=== PATIENT | male | born 1970 | race Caucasian/White ===

== ENCOUNTER 2019-03-01 21:16 | Emergency (ER) | payer OTHER ==
[~2019-03-01] VITALS: Ht 170.2 cm; Wt 93.0 kg
[2019-03-01 21:20] VITALS: BP 115/78
--- NOTE | 2019-03-01 22:19 | PHYS DOC ---
Past Medical History Past Medical History: No Pertinent History Past Surgical History: No Surgical History Alcohol Use: None Drug Use: None Adult General Chief Complaint Chief Complaint: LACERATION/AVULSION HPI HPI Patient is a 48 year old male who presents with right upper eyebrow laceration, patient states he accidentally fell face forward at work, no loss of consciousness but states he felt "wozzy" Review of Systems Review of Systems Constitutional: Denies fever or chills [] Eyes: Reports right eye brow laceration. Denies change in visual acuity, redness, or eye pain [] HENT: Denies nasal congestion or sore throat [] Respiratory: Denies cough or shortness of breath [] Cardiovascular: No additional information not addressed in HPI [] GI: Denies abdominal pain, nausea, vomiting, bloody stools or diarrhea [] : Denies dysuria or hematuria [] Musculoskeletal: Denies back pain or joint pain [] Integument: see eye Neurologic: Denies headache, focal weakness or sensory changes [] All other systems were reviewed and found to be within normal limits, except as documented in this note. Current Medications Current Medications Current Medications Medications (Trade) Dose Ordered Sig/Scott Start Time Stop Time Status Last Admin Dose Admin Diphtheria/ Tetanus/Acell Pertussis (Boostrix) 0.5 ml ONCE ONCE 03/01/19 22:30 03/01/19 22:31 DC 03/01/19 22:39 0.5 ML Lidocaine/Sodium Bicarbonate (Buffered Lidocaine 1%) 3 ml 1X ONCE 03/01/19 22:30 03/01/19 22:31 DC 03/01/19 22:39 3 ML Allergies Allergies Allergies Coded Allergies Type Severity Reaction Last Updated Verified No Known Drug Allergies 03/01/19 No Physical Exam Physical Exam Constitutional: Well developed, well nourished, no acute distress, non-toxic appearance. [] HENT: Normocephalic, atraumatic, bilateral external ears normal, oropharynx moist, no oral exudates, nose normal. [] Eyes: Right upper eyelid with a laceration approximately 2 cm long and not cutting through. PERRLA, EOMI, conjunctiva normal, no discharge. [] Neck: Normal range of motion, no tenderness, supple, no stridor. [] Cardiovascular:Heart rate regular rhythm, no murmur [] Lungs & Thorax: Bilateral breath sounds clear to auscultation [] Abdomen: Bowel sounds normal, soft, no tenderness, no masses, no pulsatile masses. [] Skin: Warm, dry, no erythema, no rash. [] Back: No tenderness, no CVA tenderness. [] Extremities: No tenderness, no cyanosis, no clubbing, ROM intact, no edema. [] Neurologic: Alert and oriented X 3, normal motor function, normal sensory function, no focal deficits noted. [] Psychologic: Affect normal, judgement normal, mood normal. [] Current Patient Data Vital Signs Vital Signs Date Time Temp Pulse Resp B/P (MAP) Pulse Ox O2 Delivery O2 Flow Rate FiO2 03/01/19 21:20 97.7 74 14 115/78 (90) 99 Room Air 97.7 EKG EKG [] Radiology/Procedures Radiology/Procedures []PROCEDURE: CT HEAD AND MAXILLOFACIAL WO CT scan of the head without contrast 03/01/2019 Clinical History: Fall with head and facial injury. Technique: Unenhanced, contiguous, 5 mm axial sections were obtained through the head. One or more of the following individualized dose reduction techniques were utilized for this study: 1. Automated exposure control. 2. Adjustment of the mA and/or kV according to patient size. 3. Use of iterative reconstruction technique. Findings: The ventricles and sulci are within normal limits in size and configuration. No area of abnormal attenuation is seen involving brain parenchyma. No extra-axial fluid collection is noted. No skull fracture is seen. Impression: No acute intracranial abnormality is seen. CT scan of the facial bones without contrast 03/01/2019 Clinical history: Fall with facial injury. Technique: Unenhanced, contiguous, 0.625 mm axial sections were obtained through the facial bones and orbits. 3 mm reconstructed sagittal, axial and coronal images were obtained. One or more of the following individualized dose reduction techniques were utilized for this study: 1. Automated exposure control. 2. Adjustment of the mA and/or kV according to patient size. 3. Use of iterative reconstruction technique. Findings: No facial bone fractures seen. Both orbits are intact. Mild mucosal thickening is seen scattered throughout the paranasal sinuses. No fluid level is seen. Impression: No facial bone or orbital fracture is seen. Electronically signed by: Stephan Tompkins MD (03/01/2019 10:48 PM) [facility] DICTATED and SIGNED BY: STEPHAN TOMPKINS MD DATE: 03/01/19 2248 Laceration/Wound Repair Wound Location: Right upper eyebrow Wound's Depth, Shape: Horizontal Wound Length (cm): Approximately 2 cm Wound Explored: clean Irrigated w/ Saline (ccs): 20 Betadine Prep?: Yes Anesthesia: 1% buffered lidocaine Volume Anesthetic (ccs): 160 Wound Repaired With: Dissolvable gut Suture Size/Type: 6.0/interrupted sutures Number of Sutures: 5 Progress :[] Course & Med Decision Making Course & Med Decision Making Pertinent Labs and Imaging studies reviewed. (See chart for details) This is a 48-year-old male patient presenting to the ED today with a right upper eyebrow laceration after falling face forward at work, no loss of cons ciousness. CT of the head and maxillofacial were negative. Laceration was repaired by me as noted in procedures. Wound care instructions and return precautions provided. Tetanus updated. Dragon Disclaimer Dragon Disclaimer This electronic medical record was generated, in whole or in part, using a voice recognition dictation system. Departure Departure Impression: Primary Impression: Fall from standing Additional Impressions: Facial contusion Eyebrow laceration Disposition: HOME, SELF-CARE Condition: STABLE (.) Referrals: NO PCP (PCP) Follow-up with your doctor as needed Patient Instructions: Contusion, [id number], Facial Laceration Additional Instructions: You have right eyebrow laceration that was closed with stitches. Keep the area clean and dry. You can shower wash her face. Apply Neosporin to the area twice a day. Monitor the area for any signs of infection including but not limited to increased redness, warmth to the area, yellow drainage. Your CT of the head and face were negative for any acute findings. Come back to the ED at any point symptoms worsen. Problem Qualifiers Primary Impression: Fall from standing Encounter type: initial encounter Qualified Codes: W19.XXXA - Unspecified fall, initial encounter Additional Impressions: Facial contusion Encounter type: initial encounter Qualified Codes: S00.83XA - Contusion of other part of head, initial encounter Eyebrow laceration Encounter type: initial encounter Laterality: right Qualified Codes: S01.111A - Laceration without foreign body of right eyelid and periocular area, initial encounter [employer]OR [employer] Mar 01, 2019 22:19
[2019-03-01] MEDS ORDERED: LIDOCAINE WITH 8.4% SOD BICARB 3 ML DISP.SYRIN. INJ ONE (22:30)
[2019-03-01] MEDS ORDERED: DIPHTH,PERTUSS(ACELL),TET TOX 0.5 ML DISP.SYRIN. VAX IM ONE (22:30)
--- NOTE | 2019-03-01 22:50 | RAD ---
CT scan of the head without contrast 03/01/2019 Clinical History: Fall with head and facial injury. Technique: Unenhanced, contiguous, 5 mm axial sections were obtained through the head. One or more of the following individualized dose reduction techniques were utilized for this study: 1. Automated exposure control. 2. Adjustment of the mA and/or kV according to patient size. 3. Use of iterative reconstruction technique. Findings: The ventricles and sulci are within normal limits in size and configuration. No area of abnormal attenuation is seen involving brain parenchyma. No extra-axial fluid collection is noted. No skull fracture is seen. Impression: No acute intracranial abnormality is seen. CT scan of the facial bones without contrast 03/01/2019 Clinical history: Fall with facial injury. Technique: Unenhanced, contiguous, 0.625 mm axial sections were obtained through the facial bones and orbits. 3 mm reconstructed sagittal, axial and coronal images were obtained. One or more of the following individualized dose reduction techniques were utilized for this study: 1. Automated exposure control. 2. Adjustment of the mA and/or kV according to patient size. 3. Use of iterative reconstruction technique. Findings: No facial bone fractures seen. Both orbits are intact. Mild mucosal thickening is seen scattered throughout the paranasal sinuses. No fluid level is seen. Impression: No facial bone or orbital fracture is seen. Electronically signed by: Stephan Yoon MD (03/01/2019 10:48 PM) [facility]
== END 2019-03-02 00:21 | disposition home or self-care (01) ==
LOC: ER 21:16
DX: S01.111A Laceration without foreign body of right eyelid and periocular area, initial encounter (principal); R42 Dizziness and giddiness; W18.39XA Other fall on same level, initial encounter; Y93.89 Activity, other specified; Y92.69 Other specified industrial and construction area as the place of occurrence of the external cause; Y99.0 Civilian activity done for income or pay
CPT/HCPCS: 12011; 70450; 70486; 90471; 90715; 99284-25

== ENCOUNTER 2020-02-09 09:37 | Emergency (ER) | payer BC, OTHER ==
[~2020-02-09] VITALS: Ht 175.3 cm; Wt 95.0 kg
--- NOTE | 2020-02-09 09:53 | PHYS DOC ---
Past Medical History Past Medical History: No Pertinent History Past Surgical History: No Surgical History Smoking Status: Never Smoker Alcohol Use: None Drug Use: None General Adult EDM: Chief Complaint: CHEST PAIN HPI: HPI: 49-year-old male with no reported significant past medical history, who presents for evaluation of a 3-day history of chest pain and URI symptoms. He reports diffuse chest pressure with associated dyspnea, as well as nonproductive cough, lightheadedness. No known close contact with COVID19 infected individuals. No prior history of CAD or thromboembolic disease. Review of Systems: Review of Systems: Gen: No fever, chills. Eyes: No blurred vision, diplopia. ENT: No nasal congestion, sore throat. CV: No palpitations. Reports chest pressure. Resp. Reports SOB, cough. GI: No abd pain, N/V. : No dysuria, hematuria. Neuro: No BOLIVAR, weakness. Reports lightheadedness. MSK: No myalgia, arthralgia, back pain. Skin: No acute rash or lesion. Heart Score: Risk Factors: Risk Factors: DM, Current or recent (<one month) smoker, HTN, HLP, family history of CAD, obesity. Risk Scores: Score 0 - 3: 2.5% MACE over next 6 weeks - Discharge Home Score 4 - 6: 20.3% MACE over next 6 weeks - Admit for Clinical Observation Score 7 - 10: 72.7% MACE over next 6 weeks - Early Invasive Strategies Allergies: Allergies: Allergies Coded Allergies Type Severity Reaction Last Updated Verified No Known Drug Allergies 03/01/19 No Physical Exam: PE: Gen: NAD. Well nourished. Head: NC/AT. Eyes: No scleral icterus. No conjunctival injection. ENT: MMM. Posterior OP clear. Neck: Supple. NT. No JVD. CV: RRR. Peripheral pulses intact. Resp: CTAB. Abd: Soft. NT. ND. MSK: No peripheral cyanosis. No edema. No calf tenderness or asymmetry. Neuro: Awake and alert. Skin. Warm. Dry. Psych: Appropriate mood & affect. EKG: EKG: EKG at 0944. Sinus rhythm. Heart rate 57. Normal intervals. No STEMI. Nonspecific ST changes. Interpreted by me. Radiology/Procedures: Radiology/Procedures: PROCEDURE: PORTABLE CHEST 1V EXAM: PORTABLE CHEST 1V INDICATION: Reason: Cough, CP / Spl. Instructions: / History: . TECHNIQUE: Single view COMPARISON: None FINDINGS: The heart size is normal. The great vessels appear unremarkable. There is no hilar or mediastinal mass. The lungs are clear. There is no pleural effusion or pneumothorax. There are no significant osseous abnormalities. IMPRESSION: No active cardiopulmonary disease. Electronically signed by: Theron Jurado MD (02/09/2020 10:27 AM) [id number] Course & Med Decision Making: Course & Med Decision Making Pertinent Labs and Imaging studies reviewed. (See chart for details) In summary, 49-year-old male who presents for evaluation of chest discomfort and URI symptoms over the last 3 days or so. Hemodynamically stable. No tachycardia, hypotension, or hypoxia. Unremarkable cardiorespiratory examination. Chest x-ray is clear. EKG shows no acute injury pattern. Labwork was otherwise unremarkable without leukocytosis, anemia, or gross electrolyte derangement. Troponin is negative. BNP within normal limits. Suspecting ACS, dissection, or PE at this time. HEART score 2 for age and risk factors. Sym ptoms may potentially represent novel COVID (tested by PMD yesterday, results pending), though there are no secondary findings such as thrombocytopenia, lymphopenia, transaminitis, etc. Regardless, advised typical precautions. Will be discharged home with outpatient follow-up. Rx as below. Return precautions given. Dragon Disclaimer: Maria Elena Disclaimer: This electronic medical record was generated, in whole or in part, using a voice recognition dictation system. Departure Departure Impression: Primary Impression: Viral syndrome Additional Impression: Chest pain Disposition: 01 HOME, SELF-CARE Referrals: NO PCP (PCP) Patient Instructions: Chest Pain (Nonspecific)-Brief, Form - Excuse from Work, School, or Physical Activity, Viral Syndrome Additional Instructions: Take motrin/ibuprofen 600 mg every 8 hours as needed for pain/fever. Scripts Azithromycin (ZITHROMAX) 250 Mg Tablet 250 MG PO as directed for ANTI-BIOTIC, #6 TAB 0 Refills Take 2 PO x 1 days Then take 1 PO q 24 hour for the next 4 days Prov: CRISTINA OLIVARES DO 02/09/20 Albuterol Sulfate (PROAIR HFA INHALER) 8.5 Gm Hfa.aer.ad 2 PUFF IH PRN Q4-6HRS PRN for wheezing for 21 Days, #1 INHALER 0 Refills Prov: CRISTINA OLIVARES DO 02/09/20 Acetaminophen With Codeine (TYLENOL WITH CODEINE #3 TABLET) 1 Each Tablet 1 TAB PO PRN Q12HR PRN for PAIN, #10 TAB Prov: CRISTINA OLIVARES DO 02/09/20 Justicifation of Admission Dx: Justifications for Admission: Justification of Admission Dx: N/A CRISTINA OLIVARES DO Feb 09, 2020 09:53
--- NOTE | 2020-02-09 09:54 | EKG ---
[facility] [address] [place] [address] Test Date: 2020-02-09 Test Time: 09:44:48 Pat Name: NINI JONES Department: Room: Gender: Software Quality Engineer: : [id number] Requested By: CRISTINA OLIVARES Order Number: [id number] Reading MD: Dominick Humphries Measurements Intervals [place] Rate: 57 P: 42 ID: [id number] QRS: 31 QRSD: 86 T: 46 QT: 394 QTc: 386 Interpretive Statements SINUS RHYTHM NONSPECIFIC ST-T WAVE CHANGES. Electronically Signed On 02-11-2020 16:24:06 CDT by Dominick Humphries
[2020-02-09] MEDS ORDERED: ACETAMINOPHEN/CODEINE 300/30MG TABLET. PO ONE (10:00)
[2020-02-09] MEDS ORDERED: IV NORMAL SALINE 1000ML BAG 1,000 ML IV ONE (10:00)
[2020-02-09 10:15] LABS: BASO % 1 % (0-3); EOS # 0.2 x10^3/uL (0.0-0.7); EOS % 3 % (0-3); HEMATOCRIT 44.1 % (39.0-53.0); HEMOGLOBIN 14.8 g/dL (13.0-17.5); LYMPH # 1.6 x10^3/uL (1.0-4.8); LYMPH % 30 % (24-48); MEAN CORPUSCULAR HEMOGLOBIN 29 pg (25-35); MEAN CORPUSCULAR HGB CONC 34 g/dL (31-37); MEAN CORPUSCULAR VOLUME 87 fL (79-100); MONO # 0.3 x10^3/uL (0.0-1.1); MONO % 6 % (0-9); NEUT # 3.2 x10^3/uL (1.8-7.7); NEUT % 61 % (31-73); PLATELET COUNT 211 x10^3/uL (140-400); RED BLOOD COUNT 5.04 x10^6/uL (4.30-5.70); RED CELL DISTRIBUTION WIDTH 14.6 % (11.5-14.5); WHITE BLOOD COUNT 5.3 x10^3/uL (4.0-11.0)
[2020-02-09 10:26] LABS: CALCIUM 9.5 mg/dL (8.5-10.1); CREATININE 1.1 mg/dL (0.7-1.3); GFR 70.6; POTASSIUM 3.9 mmol/L (3.5-5.1)
--- NOTE | 2020-02-09 10:30 | RAD ---
EXAM: PORTABLE CHEST 1V INDICATION: Reason: Cough, CP / Spl. Instructions: / History: . TECHNIQUE: Single view COMPARISON: None FINDINGS: The heart size is normal. The great vessels appear unremarkable. There is no hilar or mediastinal mass. The lungs are clear. There is no pleural effusion or pneumothorax. There are no significant osseous abnormalities. IMPRESSION: No active cardiopulmonary disease. Electronically signed by: Theron Jurado MD (02/09/2020 10:27 AM) [id number]
[2020-02-09 10:33] LABS: ALBUMIN 4.6 g/dL (3.4-5.0); ALBUMIN/GLOBULIN RATIO 1.4 (1.0-1.7); MAGNESIUM 2.2 mg/dL (1.8-2.4); TOTAL BILIRUBIN 0.4 mg/dL (0.2-1.0)
[2020-02-09 10:47] VITALS: BP 116/82
[2020-02-09] MEDS ORDERED: AZIT250T PO (10:49)
[2020-02-09] MEDS ORDERED: ACET-704 PO (10:49)
[2020-02-09] MEDS ORDERED: ALBU2.5V8 IH (10:49)
== END 2020-02-09 11:07 | disposition home or self-care (01) ==
LOC: ER 09:37
DX: B34.9 Viral infection, unspecified (principal); R07.89 Other chest pain; R42 Dizziness and giddiness; R06.00 Dyspnea, unspecified
CPT/HCPCS: 36415; 71045; 80053; 83690; 83735; 83880; 84484; 85025; 93005; 96360; 99285; J7030